=== PATIENT | male | born 1965 | race Caucasian/White ===

== ENCOUNTER 2019-08-18 07:36 | Day surgery (SDC) | payer BC ==
[~2019-08-18] VITALS: Ht 182.9 cm; Wt 111.0 kg
[~2019-08-18 07:36] MED LIST: ALBU90OI INH; AZIT500 PO; HYDR1TAB94 PO; IBUPROFEN; MUPI2TO TOP; TYLENOL COLD
== END 2019-08-18 10:00 | disposition home or self-care (01) ==
LOC: ORSCSDS 07:36
PROVIDERS: Internal Medicine Gastroenterology
PROC: 0DBH8ZX Excision of Cecum, Via Natural or Artificial Opening Endoscopic, Diagnostic (ICD-10-PCS; principal; 2019-08-18 09:00)
PROC: 0DBL8ZX Excision of Transverse Colon, Via Natural or Artificial Opening Endoscopic, Diagnostic (ICD-10-PCS; principal; 2019-08-18 09:00)
PROC: 0DBK8ZX Excision of Ascending Colon, Via Natural or Artificial Opening Endoscopic, Diagnostic (ICD-10-PCS; principal; 2019-08-18 09:00)
DX: Z12.11 Encounter for screening for malignant neoplasm of colon (principal); Z86.010 Personal history of colon polyps; Z83.71 Family history of colonic polyps; D12.3 Benign neoplasm of transverse colon; D12.2 Benign neoplasm of ascending colon; D12.0 Benign neoplasm of cecum; K64.8 Other hemorrhoids
CPT/HCPCS: 88305; J0330; J0461; J2405; J2704; J7120

== ENCOUNTER 2023-01-15 07:28 | Day surgery (SDC) | payer BC ==
[~2023-01-15] VITALS: Ht 182.9 cm; Wt 112.1 kg
== END 2023-01-15 10:00 | disposition home or self-care (01) ==
LOC: ORSCSDS 07:28
PROVIDERS: Internal Medicine Gastroenterology
PROC: 0DJD8ZZ Inspection of Lower Intestinal Tract, Via Natural or Artificial Opening Endoscopic (ICD-10-PCS; principal; 2023-01-15 08:45)
DX: Z12.11 Encounter for screening for malignant neoplasm of colon (principal); Z86.010 Personal history of colon polyps; Z83.71 Family history of colonic polyps; K64.8 Other hemorrhoids
CPT/HCPCS: J2704; J7120

== ENCOUNTER → 2025-09-26 | Outpatient (CLI) | payer BC ==
[2025-09-26 21:22] LABS: Prostate Specific Antigen 5.640 ng/mL (0.000-4.000); Thyroid Stimulating Hormone 1.890 uIU/mL (0.360-4.800)
[2025-10-02 03:32] LABS: TESTOSTERONE, FREE BY DIALYSIS 35.5 pg/mL (47.0-244.0); TESTOSTERONE, TOTAL MASS SPEC 206.0 ng/dL (300.0-890.0)
== END | disposition home or self-care (01) ==
LOC: LAB SHORT 16:23 → LAB 16:23
PROVIDERS: Internal Medicine Hematology & Oncology
DX: Z12.5 Encounter for screening for malignant neoplasm of prostate (principal); M54.12 Radiculopathy, cervical region; E29.1 Testicular hypofunction
CPT/HCPCS: 82607; 84402; 84403; 84436; 84443; G0103